=== PATIENT | male | born 1990 | race Caucasian/White ===

== ENCOUNTER 2017-09-03 08:14 | Outpatient (CLI) | payer MEDICARE, OTHER ==
[2015-03-23 13:51] VITALS: BP 132/74
== END 2017-09-03 08:15 ==
LOC: RT 08:14
PROVIDERS: ATTEND Nurse Practitioner Family
DX: Z01.818 Encounter for other preprocedural examination (principal)

== ENCOUNTER 2018-08-20 14:27 | Emergency (ER) | payer MEDICARE, OTHER ==
[2018-08-20 14:48] VITALS: BP 122/67
--- NOTE | 2018-08-20 14:50 | ED Physician Documentation ---
Lower Extremity Injury - HISTORIAN Historian: other - HPI Stated Complaint: Right foot/ankle pain Chief Complaint: Lower Extremity Problem Additional Information: Intro self as LINUX SYSTEM ADMINISTRATOR. Pt presents to the ED via POV with [facility], [employer], c/o right ankle/foot pain since this AM. unknown if trauma or injury. Pt unwilling to stand on right foot to ambulate. pt nonverbal and has hx of Downs syndrome Ibuprofen at 1130 today. History limited due to pt nonverbal. caregiver denies trouble breathing, decreased mental status, chest pain, rash, fever, cough, n/v/d, change in bowel/bladder, dysuria, trauma, easy bruising or bleeding, sick contacts. ROS negative unless otherwise specified. - ROS CONST: no problems. denies: recent illness, fever, chills CVS/RESP: denies: chest pain, shortness of breath, cough GI/: denies: problems urinating, nausea, vomiting MS/SKIN/LYMPH: none. denies: neck pain, back pain, foot swelling, ankle swelling, rash, other NEURO: denies: headache, head injury, anxiety, depression - PAST HX Past History: other (downs syndrome/tonsillectomy) Allergies/Adverse Reactions: Allergies Allergy/AdvReac Type Severity Reaction Status Date / Time No Known Allergies Allergy Verified 08/20/18 14:48 Home Medications: Ambulatory Orders Medication Instructions Recorded NK 03/23/15 - SOCIAL HX Smoking History: non-smoker Alcohol Use: none Drug Use: none - FAMILY HX Family History: no significant history - VITAL SIGNS Vital Signs: Vital Signs Temp Pulse Resp BP Pulse Ox 98.2 F 67 15 122/67 96 08/20/18 14:42 08/20/18 14:42 08/20/18 14:42 08/20/18 14:42 08/20/18 14:42 - REVIEWED ASSESSMENTS Nursing Assessment Reviewed: Yes Vitals Reviewed: Yes ED Results Lab/Radiology - Radiology Radiology Impressions: Report Submission Date: Aug 20, 2018 3:55:50 PM CONTINUOUS IMPROVEMENT CONSULTANT Patient Study Name: CLOVIS CHAMBERS Date: Aug 20, 2018 2:59:08 PM CONTINUOUS IMPROVEMENT CONSULTANT Modality Type: DX Gender: M Description: LOWER EXTREMITY : 89 Institution: [facility] Physician: JERO CHOWDHURY Examination: Plain film right ankle History: PAIN IN RT ANKLE Findings: 3 views of the right ankle demonstrates normal cortical margins. No fracture or dislocation. Talar dome is intact. Lateral soft tissue swelling. No joint effusion. Impression: Lateral soft tissue swelling. No acute osseous process. Electronically signed on Aug 20, 2018 3:55:50 PM CONTINUOUS IMPROVEMENT CONSULTANT by: Joshua Guevara Report Submission Date: Aug 20, 2018 3:57:58 PM CONTINUOUS IMPROVEMENT CONSULTANT Patient Study Name: CLOVIS CHAMBERS Date: Aug 20, 2018 3:02:12 PM CONTINUOUS IMPROVEMENT CONSULTANT Modality Type: DX Gender: M Description: LOWER EXTREMITY : 89 Institution: [facility] Physician: JERO CHOWDHURY Examination: Plain film right foot History: PAIN IN RT FOOT. Findings: 3 views of the right foot demonstrates normal cortical margins. No fracture or dislocation. No soft tissue swelling. No joint effusion. Impression: No acute osseous process. Electronically signed on Aug 20, 2018 3:57:58 PM CONTINUOUS IMPROVEMENT CONSULTANT by: Joshua Guevara - Orders Orders: ED Orders Category Date Time Status ANKLE 3 VIEWS OR MORE [RAD] Stat Exams 08/20/18 Ordered FOOT 3 VIEWS OR MORE [RAD] Stat Exams 08/20/18 Ordered Lower Extremities Injury Phy - Physical Exam General Appearance: no acute distress, alert Hips: bilateral hip: non-tender, normal inspection, normal range of motion, no evidence of injury Legs: bilateral: non-tender, normal inspection, normal range of motion Knees: bilateral: non-tender, normal inspection, normal range of motion, no evidence of injury Ankle: right: bone tenderness, limited range of motion, soft tissue tenderness, left: non-tender, normal inspection, normal range of motion, bilateral: no evidence of injury Foot: right foot: bone tenderness, limited range of motion, soft tissue tenderness, left foot: non-tender, normal inspection, normal range of motion, no evidence of injury Gait: other (refuses to bear weight) Neuro/Vascular/Tendon: no vascular compromise, motor nml, sensation nml, ROM nml Head/ENT: nml inspection Neck/Back: nml inspection Resp/CVS: no resp. distress Abdomen: non-tender Discharge Clincal Impression: Sprain Additional Instructions: Wear air cast ankle splint while awake Ibuprofen 600 mg every 6 hours for fever/inflammation Tylenol 650 mg every 4-6 hours for pain/fever seek medical care immediately if difficult to wake, difficulty breathing, feeling faint or fainting, increased rash, chest pain, shortness of breath, or fever not controlled by tylenol/motrin or any concern. follow up with primary care next week or before if not improving as expected. PLEASE UNDERSTAND THAT THIS IS AN EMERGENCY EVALUATION FOR YOUR COMPLAINT AND BY NATURE IS LIMITED AND NOT A SUBSTITUTE FOR ONGOING MEDICAL CARE. EVEN THOUGH TEST RESULTS AND TREATMENT PLAN WERE EXPLAINED THERE MAY BE A NEED FOR ADDITIONAL TESTING TO FULLY DETERMINE THE EXTENT OF YOUR ILLNESS/INJURY/OR CONCERN SO YOU SHOULD CONTACT AND OR ESTABLISH WITH A PRIMARY CARE PROVIDER (OR REFERRAL DOCTOR IF APPLICABLE) FOR AN APPOINTMENT SOON POSSIBLE Condition: Good Disposition: 01 HOME, SELF-CARE Decision to Admit: NO Date of Decison to Admit: 08/20/18 Decision Time: 16:10
[2018-08-20] MEDS ORDERED: ACETAMINOPHEN ORAL SOLUTION 325 MG/10.15 ML CUP PO STA (16:11)
--- NOTE | 2018-08-20 16:25 | Diagnostic Imaging Report ---
JERO CHOWDHURY [facility] [address] [facility] [address] [address] Report Submission Date: Aug 20, 2018 3:57:58 PM TERRITORY BUSINESS MANAGER Patient Study Name: CLOVIS CHAMBERS Date: Aug 20, 2018 3:02:12 PM TERRITORY BUSINESS MANAGER Modality Type: DX Gender: M Description: LOWER EXTREMITY : 89 Institution: [facility] Physician: JERO CHOWDHURY Examination: Plain film right foot History: PAIN IN RT FOOT. Findings: 3 views of the right foot demonstrates normal cortical margins. No fracture or dislocation. No soft tissue swelling. No joint effusion. Impression: No acute osseous process. Electronically signed on Aug 20, 2018 3:57:58 PM TERRITORY BUSINESS MANAGER by: Joshua ANDERSON
--- NOTE | 2018-08-20 16:29 | Diagnostic Imaging Report ---
JERO CHOWDHURY [address] [facility] [address] [address] Report Submission Date: Aug 20, 2018 3:55:50 PM AUTOMATIC LINE SET UP MECHANIC Patient Study Name: CLOVIS CHAMBERS Date: Aug 20, 2018 2:59:08 PM AUTOMATIC LINE SET UP MECHANIC Modality Type: DX Gender: M Description: LOWER EXTREMITY : 89 Institution: Physician: JERO CHOWDHURY Examination: Plain film right ankle History: PAIN IN RT ANKLE Findings: 3 views of the right ankle demonstrates normal cortical margins. No fracture or dislocation. Talar dome is intact. Lateral soft tissue swelling. No joint effusion. Impression: Lateral soft tissue swelling. No acute osseous process. Electronically signed on Aug 20, 2018 3:55:50 PM AUTOMATIC LINE SET UP MECHANIC by: Joshua ANDERSON
== END 2018-08-20 16:28 | disposition home or self-care (01) ==
LOC: ED 14:27
DX: S93.601A Unspecified sprain of right foot, initial encounter (principal); X58.XXXA Exposure to other specified factors, initial encounter; Y93.9 Activity, unspecified; Y92.199 Unspecified place in other specified residential institution as the place of occurrence of the external cause
CPT/HCPCS: 29515; 73610; 73630; 99282; 99284